=== PATIENT | female | born 1950 | race Caucasian/White ===

== ENCOUNTER → 2022-01-23 | Outpatient (CLI) | payer MEDICARE, BC | LOC: M SOG 08:09 | PROVIDERS: ATTEND Physician Assistant | DX: M79.641 Pain in right hand (principal); M79.642 Pain in left hand; M25.741 Osteophyte, right hand; M25.742 Osteophyte, left hand ==

== ENCOUNTER → 2023-02-15 | Outpatient (REF) | payer MEDICARE, BC ==
[~2023-02-15] MED LIST: CALCTAB89 PO; CO Q200C10 PO; CULT10CA4 PO; DOXY100T; ESCITALOPRAM; OMEP40CA5; VITA100093
== END ==
LOC: M LAB REF 10:25
PROVIDERS: ATTEND Internal Medicine Medical Oncology
DX: E83.110 Hereditary hemochromatosis (principal)

== ENCOUNTER → 2023-03-07 | Outpatient (CLI) | payer MEDICARE, BC ==
[~2023-03-07] MED LIST changes: +PROB250C PO
== END ==
LOC: M RAD 12:43
PROVIDERS: ATTEND Nurse Practitioner
DX: E83.119 Hemochromatosis, unspecified (principal); K76.0 Fatty (change of) liver, not elsewhere classified; R16.1 Splenomegaly, not elsewhere classified

== ENCOUNTER → 2023-03-13 | Outpatient (CLI) | payer MEDICARE, BC | LOC: M CARPUL 13:03 | PROVIDERS: ATTEND Internal Medicine Medical Oncology | DX: E83.119 Hemochromatosis, unspecified (principal) ==

== ENCOUNTER 2023-10-06 06:14 | Day surgery (SDC) | payer MEDICARE ==
[~2023-10-06] VITALS: Ht 157.5 cm; Wt 83.8 kg
[~2023-10-06 06:14] MED LIST changes: +LEXA1TAB2 PO; +NAPR-885; +NS 1,000 ML IV ONE; +PEPC1TAB5 PO; -VITA100093; +VITA100093 PO
[2023-10-06] MEDS ORDERED: SODIUM BICARBONATE 8.4% INJ 50MEQ 50ML VIAL XX ONE (06:45)
[2023-10-06] MEDS ORDERED: LIDOCAINE W/EPINEPHRINE 1% 20ML VIAL XX ONE (06:45)
[2023-10-06] MEDS ORDERED: BACITRACIN OINTMENT 30GM TUBE As Ordered ONE (07:10)
[2023-10-06 08:00] VITALS: BP 144/81; TEMP 99; O2SAT 97
== END 2023-10-06 08:11 | disposition home or self-care (01) ==
LOC: M SDC 06:14
PROVIDERS: ATTEND Orthopaedic Surgery Hand Surgery
DX: M65.312 Trigger thumb, left thumb (principal); M65.842 Other synovitis and tenosynovitis, left hand; M18.0 Bilateral primary osteoarthritis of first carpometacarpal joints; K21.9 Gastro-esophageal reflux disease without esophagitis; Z79.899 Other long term (current) drug therapy; Z88.0 Allergy status to penicillin; Z88.8 Allergy status to other drugs, medicaments and biological substances; Z91.013 Allergy to seafood

== ENCOUNTER → 2023-11-30 | Outpatient (REF) | payer MEDICARE ==
[~2023-11-30] MED LIST changes: -NS 1,000 ML IV ONE
== END ==
LOC: M LAB REF 10:25
PROVIDERS: ATTEND Internal Medicine Gastroenterology
DX: R19.7 Diarrhea, unspecified (principal)

== ENCOUNTER 2024-01-21 06:27 | Day surgery (SDC) | payer MEDICARE ==
[~2024-01-21] VITALS: Ht 157.5 cm; Wt 82.0 kg
[~2024-01-21 06:27] MED LIST changes: +IBUP200C29 PO; -NAPR-885; +NAPR-885 PO; +NS 1,000 ML IV ONE
[2024-01-21] MEDS ORDERED: propofoL 200 MG/20 ML VIAL As Ordered ONE (06:58)
[2024-01-21] MEDS ORDERED: LIDOCAINE 2% 100MG/5ML SDV (FOR ANES.) As Ordered ONE (06:59)
[2024-01-21 08:20] VITALS: TEMP 96.9
[2024-01-21 10:25] VITALS: BP 154/88; O2SAT 95
== END 2024-01-21 10:34 | disposition home or self-care (01) ==
LOC: M OPP 06:27
PROVIDERS: ATTEND Internal Medicine Gastroenterology
DX: K52.9 Noninfective gastroenteritis and colitis, unspecified (principal); D12.2 Benign neoplasm of ascending colon; D12.0 Benign neoplasm of cecum; D12.4 Benign neoplasm of descending colon; K57.30 Diverticulosis of large intestine without perforation or abscess without bleeding; K64.8 Other hemorrhoids; K64.4 Residual hemorrhoidal skin tags

== ENCOUNTER → 2024-05-26 | Outpatient (CLI) | payer MEDICARE ==
[~2024-05-26] MED LIST changes: +CREO3600 PO; -NS 1,000 ML IV ONE
== END ==
LOC: M EKG 13:26
PROVIDERS: ATTEND Anesthesiology
DX: Z01.818 Encounter for other preprocedural examination (principal); K74.60 Unspecified cirrhosis of liver; I45.19 Other right bundle-branch block

== ENCOUNTER 2024-06-08 05:50 | Day surgery (SDC) | payer MEDICARE ==
[~2024-06-08] VITALS: Ht 154.9 cm; Wt 82.6 kg
[2024-06-08] MEDS ORDERED: LR 1,000 ML IV SCH (06:20)
[2024-06-08] MEDS ORDERED: ONDANSETRON 4MG 2ML VIAL As Ordered ONE (07:14)
[2024-06-08] MEDS ORDERED: LIDOCAINE 2% 100MG/5ML SDV (FOR ANES.) As Ordered ONE (07:14)
[2024-06-08] MEDS ORDERED: BACITRACIN OINTMENT 30GM TUBE As Ordered ONE (07:14)
[2024-06-08] MEDS ORDERED: ROCURONIUM BROMIDE 50MG/5ML VIAL As Ordered ONE (07:14)
[2024-06-08] MEDS ORDERED: propofoL 200 MG/20 ML VIAL As Ordered ONE (07:14)
[2024-06-08] MEDS ORDERED: MIDAZOLAM INJ 2MG/2ML VIAL As Ordered ONE (07:15)
[2024-06-08] MEDS ORDERED: fentaNYL 100 MCG/2 ML INJECTION As Ordered ONE (07:15)
[2024-06-08] MEDS ORDERED: ROPIvacaine 0.5% 30ML VIAL As Ordered ONE (07:33)
[2024-06-08] MEDS ORDERED: ceFAZolin 2 GM/D5W 50 ML IV BAG As Ordered ONE (07:35)
[2024-06-08] MEDS: ceFAZolin SOD 2 GM in IV 1 EA IV ONE (07:40)
[2024-06-08] MEDS ORDERED: fentaNYL 100 MCG/2 ML INJECTION IV PRN (09:00)
[2024-06-08] MEDS ORDERED: MEPERIDINE 25 MG/ML 1ML VIAL IV PRN (09:00)
[2024-06-08] MEDS ORDERED: ONDANSETRON 4MG 2ML VIAL IV PRN (09:00)
[2024-06-08] MEDS ORDERED: diphenhydrAMINE 50MG/ML VIAL IV PRN (09:00)
[2024-06-08] MEDS ORDERED: METOCLOPRAMIDE INJ 10MG/2ML VIAL IV PRN (09:00)
[2024-06-08] MEDS ORDERED: oxyCODONE 5MG TAB PO PRN (09:00)
[2024-06-08] MEDS ORDERED: TRAM50TA2 PO (09:19)
[2024-06-08 09:50] VITALS: BP 180/92; TEMP 97.3; O2SAT 93
== END 2024-06-08 10:24 | disposition home or self-care (01) ==
LOC: M SDC 05:50
PROVIDERS: ATTEND Orthopaedic Surgery Hand Surgery
DX: M18.9 Osteoarthritis of first carpometacarpal joint, unspecified (principal); K76.0 Fatty (change of) liver, not elsewhere classified; K21.9 Gastro-esophageal reflux disease without esophagitis; Z79.899 Other long term (current) drug therapy; Z88.0 Allergy status to penicillin; Z88.8 Allergy status to other drugs, medicaments and biological substances; Z91.013 Allergy to seafood
CPT/HCPCS: 25310; 25447; 76000; C1713; J0665; J0690; J1100; J2250; J2405; J2795; J3010

== ENCOUNTER → 2024-06-17 | Outpatient (CLI) | payer MEDICARE ==
[~2024-06-17] MED LIST changes: +TRAM50TA2 PO
== END ==
LOC: M SOG 07:58
PROVIDERS: ATTEND Physician Assistant
DX: M18.11 Unilateral primary osteoarthritis of first carpometacarpal joint, right hand (principal)

== ENCOUNTER → 2024-07-19 | Outpatient (CLI) | payer MEDICARE | LOC: M SOG 07:49 | PROVIDERS: ATTEND Physician Assistant | DX: M18.11 Unilateral primary osteoarthritis of first carpometacarpal joint, right hand (principal); Z98.890 Other specified postprocedural states ==

== ENCOUNTER → 2024-08-23 | Outpatient (CLI) | payer MEDICARE | LOC: M SOG 07:58 | PROVIDERS: ATTEND Physician Assistant | DX: M18.11 Unilateral primary osteoarthritis of first carpometacarpal joint, right hand (principal) ==

== ENCOUNTER → 2025-04-10 | Outpatient (REF) | payer MEDICARE, OTHER ==
[~2025-04-10] MED LIST changes: +CALC600T86 PO; +CO Q10CA PO; +FAMO20TA PO; +IBUP200T46 PO
== END ==
LOC: M SFHCDERM 17:56
PROVIDERS: ATTEND Physician Assistant
DX: L82.1 Other seborrheic keratosis (principal); L43.8 Other lichen planus

== ENCOUNTER 2025-06-06 07:49 | Day surgery (SDC) | payer MEDICARE ==
[~2025-06-06] VITALS: Ht 157.5 cm; Wt 82.5 kg
[~2025-06-06 07:49] MED LIST changes: +LIDOCAINE 2% 100 MG/5 ML SDV (FOR ANES.) As Ordered ONE; +PROBCAP14 PO; +VITAMIN D PO
[2025-06-06 09:50] VITALS: TEMP 97.3
[2025-06-06 10:20] VITALS: BP 159/70; O2SAT 98
== END 2025-06-06 10:31 | disposition home or self-care (01) ==
LOC: M OPP 07:49
PROVIDERS: ATTEND Internal Medicine Gastroenterology
DX: Z86.0101 Personal history of adenomatous and serrated colon polyps (principal); Z88.0 Allergy status to penicillin; Z88.8 Allergy status to other drugs, medicaments and biological substances; Z91.013 Allergy to seafood; Z79.899 Other long term (current) drug therapy